=== PATIENT | female | born 1945 | race Two or more races ===

== ENCOUNTER 2019-02-03 08:22 | Outpatient (CLI) | payer OTHER | END 2019-02-03 08:38 | disposition home or self-care (01) | LOC: LAB 08:22 | DX: E55.9 Vitamin D deficiency, unspecified (principal) ==

== ENCOUNTER 2019-02-03 09:18 | Outpatient (CLI) | payer OTHER | END 2019-02-03 09:45 | disposition home or self-care (01) | LOC: SONOGRAMA 09:18 | DX: E04.1 Nontoxic single thyroid nodule (principal) ==

== ENCOUNTER 2019-02-14 10:11 | Outpatient (CLI) | payer OTHER | END 2019-02-14 10:16 | disposition home or self-care (01) | LOC: NUCLEAR 10:11 | DX: M81.0 Age-related osteoporosis without current pathological fracture (principal) ==

== ENCOUNTER 2019-04-10 08:18 | Outpatient (CLI) | payer OTHER | END 2019-04-10 08:22 | disposition home or self-care (01) | LOC: SONOGRAMA 08:18 | DX: E04.1 Nontoxic single thyroid nodule (principal) ==

== ENCOUNTER 2021-02-18 13:13 | Emergency (ER) | payer OTHER ==
[~2021-02-18] VITALS: Ht 154.9 cm; Wt 61.7 kg
[2021-02-18] MEDS ORDERED: METFORMIN HCL850 MG (13:33)
[2021-02-18] MEDS ORDERED: LOSARTAN POTAS100 MG PO (13:34)
[2021-02-18] MEDS ORDERED: ATORVASTATIN CA10 MG PO (13:34)
[2021-02-18] MEDS ORDERED: GLIMEPIRIDE2 MG (13:34)
== END 2021-02-18 18:33 | disposition home or self-care (01) ==
LOC: ER 13:13
DX: R10.32 Left lower quadrant pain (principal)

== ENCOUNTER 2021-02-26 19:24 | Emergency (ER) | payer OTHER ==
[~2021-02-26] VITALS: Ht 154.9 cm; Wt 59.0 kg
[~2021-02-26 19:24] MED LIST: ATORVASTATIN CA10 MG PO; GLIMEPIRIDE2 MG; LOSARTAN POTAS100 MG PO; METFORMIN HCL850 MG
== END 2021-02-26 23:30 | disposition home or self-care (01) ==
LOC: ER 19:24
DX: R42 Dizziness and giddiness (principal); R53.1 Weakness; R51.9 Headache, unspecified

== ENCOUNTER 2021-03-01 22:15 | Emergency (ER) | payer OTHER ==
[~2021-03-01] VITALS: Ht 154.9 cm; Wt 59.9 kg
== END 2021-03-02 01:11 | disposition home or self-care (01) ==
LOC: ER 22:15
DX: R42 Dizziness and giddiness (principal); R41.3 Other amnesia

== ENCOUNTER 2021-03-17 08:54 | Outpatient (CLI) | payer OTHER | END 2021-03-17 09:16 | disposition home or self-care (01) | LOC: MRI 08:54 | PROVIDERS: ATTEND Neuromusculoskeletal Medicine & OMM | DX: I72.8 Aneurysm of other specified arteries (principal); I65.09 Occlusion and stenosis of unspecified vertebral artery; R42 Dizziness and giddiness; H93.3X9 Disorders of unspecified acoustic nerve; I65.1 Occlusion and stenosis of basilar artery; Q28.2 Arteriovenous malformation of cerebral vessels | CPT/HCPCS: 70546; 70553; A9575; 70545 ==

== ENCOUNTER 2021-08-13 08:43 | Outpatient (CLI) | payer OTHER | END 2021-08-13 08:53 | disposition home or self-care (01) | LOC: RAD 08:43 | PROVIDERS: ATTEND Internal Medicine Pulmonary Disease | DX: R05.9 Cough, unspecified (principal) ==

== ENCOUNTER 2021-09-11 08:03 | Outpatient (CLI) | payer OTHER | END 2021-09-11 08:07 | disposition home or self-care (01) | LOC: RAD 08:03 | PROVIDERS: ATTEND Internal Medicine Rheumatology | DX: M15.0 Primary generalized (osteo)arthritis (principal); M05.79 Rheumatoid arthritis with rheumatoid factor of multiple sites without organ or systems involvement ==

== ENCOUNTER 2022-01-13 13:46 | Emergency (ER) | payer OTHER ==
[~2022-01-13] VITALS: Ht 160 cm; Wt 61.7 kg
== END 2022-01-13 19:45 | disposition home or self-care (01) ==
LOC: ER 13:46
DX: M77.50 Other enthesopathy of unspecified foot and ankle (principal); M77.31 Calcaneal spur, right foot; Z88.6 Allergy status to analgesic agent; Z91.013 Allergy to seafood; I10 Essential (primary) hypertension; E11.9 Type 2 diabetes mellitus without complications; Z79.84 Long term (current) use of oral hypoglycemic drugs

== ENCOUNTER 2022-05-15 08:19 | Outpatient (CLI) | payer OTHER | END 2022-05-15 14:57 | disposition home or self-care (01) | LOC: RAD 08:19 | PROVIDERS: ATTEND Orthopaedic Surgery | DX: Z76.89 Persons encountering health services in other specified circumstances (principal); M79.671 Pain in right foot ==

== ENCOUNTER 2022-05-18 08:28 | Outpatient (CLI) | payer OTHER ==
[~2022-05-18] VITALS: Ht 154.9 cm; Wt 60.8 kg
[2022-05-20] MEDS ORDERED: NORVASC2.5 M1 PO (14:29)
[2022-05-20] MEDS ORDERED: TRAZODONE HCL100 MG PO (14:29)
[2022-05-20] MEDS ORDERED: TOPROL XL25 M1 PO (14:29)
[2022-05-20] MEDS ORDERED: MELOXICAM5 MG PO (14:30)
== END 2022-05-18 23:00 | disposition home or self-care (01) ==
LOC: LAB 08:28
PROVIDERS: ATTEND Orthopaedic Surgery
DX: I10 Essential (primary) hypertension (principal); D64.9 Anemia, unspecified; E88.9 Metabolic disorder, unspecified; D68.8 Other specified coagulation defects; N39.0 Urinary tract infection, site not specified

== ENCOUNTER 2022-05-25 07:18 | Day surgery (SDC) | payer OTHER ==
[~2022-05-25 07:18] MED LIST changes: +MELOXICAM5 MG PO; +NORVASC2.5 M1 PO; +TOPROL XL25 M1 PO; +TRAZODONE HCL100 MG PO
== END 2022-05-25 17:15 | disposition home or self-care (01) ==
LOC: CIR.AMB 07:18
PROVIDERS: ATTEND Orthopaedic Surgery
DX: M76.61 Achilles tendinitis, right leg (principal); D16.31 Benign neoplasm of short bones of right lower limb; M66.361 Spontaneous rupture of flexor tendons, right lower leg; S93.01XA Subluxation of right ankle joint, initial encounter; S96.911A Strain of unspecified muscle and tendon at ankle and foot level, right foot, initial encounter; X58.XXXA Exposure to other specified factors, initial encounter; Y93.9 Activity, unspecified; Y92.9 Unspecified place or not applicable; I10 Essential (primary) hypertension; E11.9 Type 2 diabetes mellitus without complications; M19.90 Unspecified osteoarthritis, unspecified site; Z88.6 Allergy status to analgesic agent; Z91.013 Allergy to seafood; Z20.822 Contact with and (suspected) exposure to COVID-19
CPT/HCPCS: 28300; 27650; 27656; 28200; L8699

== ENCOUNTER 2022-10-19 10:09 | Outpatient (CLI) | payer OTHER | END 2022-10-19 10:18 | disposition home or self-care (01) | LOC: TOM 10:09 | DX: R07.9 Chest pain, unspecified (principal); R06.02 Shortness of breath ==

== ENCOUNTER 2022-11-27 10:35 | Outpatient (CLI) | payer OTHER | END 2022-11-27 10:39 | disposition home or self-care (01) | LOC: RAD 10:35 | DX: M25.571 Pain in right ankle and joints of right foot (principal); R05.1 Acute cough ==

== ENCOUNTER 2022-12-09 08:18 | Outpatient (CLI) | payer OTHER | END 2022-12-09 08:27 | disposition home or self-care (01) | LOC: MRI 08:18 | PROVIDERS: ATTEND Orthopaedic Surgery | DX: M79.604 Pain in right leg (principal) | CPT/HCPCS: 73723; Q9965; 73718 ==

== ENCOUNTER 2025-02-12 16:58 | Emergency (ER) | payer OTHER ==
[~2025-02-12] VITALS: Ht 152.4 cm; Wt 60.8 kg
[2025-02-12] MEDS ORDERED: FAMOTIDINE/PF 20 MG/2 ML VIAL IV PUSH STA (19:04)
[2025-02-12] MEDS ORDERED: LOPERAMIDE HCL 2 MG CAPSULE PO STA (19:06)
[2025-02-12] MEDS ORDERED: DEXTROSE 5 % AND 0.9 % NACL 1,000 ML IV STA (19:06)
[2025-02-12] MEDS ORDERED: 0.9 % SODIUM CHLORIDE 1,000 ML IV STA (19:11)
[2025-02-12 20:08] LABS: BASO % 0.3 % (0.1-1.2); EOS # 0.01 (0.04-0.54); EOS % 0.1 % (0.7-7.0); LYMPH # 1.21 (1.18-3.74); LYMPH % 12.0 % (19.3-53.1); MEAN PLATELET VOLUME 9.10 fl (9.4-12.4); MONO # 0.72 (0.24-0.82); MONO % 7.1 % (4.7-12.5); NEUT # 8.08 (1.56-6.13); NEUT % 80.2 % (34.0-71.1); RED CELL DISTRIBUTION WIDTH 13.4 % (11.6-14.4)
[2025-02-12 20:28] LABS: BUN CREA RATIO 14.0 (7.0-25.0); CREATININE SERUM 0.81 mg/dL (0.55-1.02); GFR 68.38; GLUCOSE FASTING 121.0 mg/dL (65-100); OSMOLALITY SERUM 278.0 MOSM/KG (275-295)
[2025-02-12 21:06] LABS: URINE APPEARANCE Clear; URINE BILIRRUBIN Negative (NEGATIVE); URINE BLOOD Trace; URINE COLOR Yellow; URINE KETONE Trace (NEGATIVE); URINE LEUKOCYTE Negative; URINE NITRATE Negative; URINE UROBILINOGEN 1.0 E.U./dl
[2025-02-12 21:10] LABS: URINE BACTERIA 70.7 uL (0.0-1933); URINE CAST 2.49 uL (0.0-1.40); URINE EPITHELIAL CELLS 19.9 uL (0.0-38.8); URINE RBC 16.7 uL (0.0-20.8); URINE WBC 24.4 uL (0.0-23.2)
[2025-02-12 21:16] LABS: URINE GLUCOSE 250 MG/DL (NEGATIVE); URINE PROTEIN 100 (NEGATIVE)
== END 2025-02-12 22:14 | disposition home or self-care (01) ==
LOC: ER 16:58
PROVIDERS: Emergency Medicine
DX: E86.0 Dehydration (principal); K52.89 Other specified noninfective gastroenteritis and colitis; R19.7 Diarrhea, unspecified; I10 Essential (primary) hypertension; E11.9 Type 2 diabetes mellitus without complications; Z88.6 Allergy status to analgesic agent; Z91.013 Allergy to seafood
CPT/HCPCS: 36415; 96365; 96366; 99282; J3490; J7030

== ENCOUNTER 2025-02-14 08:48 | Emergency (ER) | payer OTHER ==
[~2025-02-14] VITALS: Ht 154.9 cm; Wt 61.2 kg
[2025-02-14 09:01] VITALS: BP 152/73; O2SAT 100
[2025-02-14] MEDS ORDERED: CLONAZEPAM2 MG PO (09:06)
[2025-02-14] MEDS ORDERED: FAMOTIDINE40 MG PO (09:07)
[2025-02-14] MEDS ORDERED: ONDANSETRON HCL 2 MG/ML VIAL IV ONE (09:30)
[2025-02-14] MEDS ORDERED: FAMOtidine 10 MG/ML (4ML VIAL) IV ONE (09:30)
[2025-02-14] MEDS ORDERED: 0.9 % SODIUM CHLORIDE 500 ML IV ONE (09:45)
[2025-02-14 10:29] LABS: BASO % 0.5 % (0.1-1.2); EOS # 0.10 (0.04-0.54); EOS % 1.7 % (0.7-7.0); LYMPH # 1.05 (1.18-3.74); LYMPH % 17.9 % (19.3-53.1); MEAN PLATELET VOLUME 9.40 fl (9.4-12.4); MONO # 0.87 (0.24-0.82); NEUT # 3.82 (1.56-6.13); NEUT % 64.9 % (34.0-71.1); RED CELL DISTRIBUTION WIDTH 13.2 % (11.6-14.4)
[2025-02-14 10:37] LABS: MONO % 14.8 % (4.7-12.5)
[2025-02-14 10:54] LABS: ALT/SGPT 23.0 U/L (12-78); AST/SGOT 27.0 U/L (15-37); BILIRUBIN TOTAL 0.43 mg/dL (0.3-1.2); BUN CREA RATIO 19.0 (7.0-25.0); CREATININE SERUM 0.7 mg/dL (0.55-1.02); GFR 80.93; GLOBULINA 4.1 G/DL (2.4-3.5); GLUCOSE FASTING 114.0 mg/dL (65-100); OSMOLALITY SERUM 280.0 MOSM/KG (275-295)
[2025-02-14 10:59] LABS: URINE APPEARANCE Clear; URINE BILIRRUBIN Negative (NEGATIVE); URINE BLOOD Trace; URINE COLOR Dark Yellow; URINE GLUCOSE Negative (NEGATIVE); URINE KETONE Trace (NEGATIVE); URINE LEUKOCYTE Negative; URINE NITRATE Negative; URINE UROBILINOGEN 0.2 E.U./dl
[2025-02-14 11:00] LABS: COVID-19 AG NEGATIVE (NEGATIVE)
[2025-02-14 11:00] LABS: URINE BACTERIA 20.3 uL (0.0-1933); URINE CAST 2.34 uL (0.0-1.40); URINE EPITHELIAL CELLS 23.8 uL (0.0-38.8); URINE RBC 29.6 uL (0.0-20.8); URINE WBC 8.9 uL (0.0-23.2)
[2025-02-14 11:23] LABS: URINE MUCUS MODERATE; URINE PROTEIN 100 (NEGATIVE)
[2025-02-14] MEDS ORDERED: ZOFRAN8 MG PO (11:32)
[2025-02-14] MEDS ORDERED: PEPCID AC20 MG PO (11:32)
[2025-02-14] MEDS ORDERED: PROBIOTIC1 EAC2 PO (11:32)
[2025-02-14] MEDS ORDERED: METRONIDAZOLE500 MG PO (11:32)
[2025-02-14] MEDS ORDERED: CIPRO500 MG PO (11:32)
== END 2025-02-14 12:58 | disposition home or self-care (01) ==
LOC: ER 08:48
PROVIDERS: General Practice
DX: R19.7 Diarrhea, unspecified (principal); R11.2 Nausea with vomiting, unspecified; Z20.822 Contact with and (suspected) exposure to COVID-19; I10 Essential (primary) hypertension; E11.9 Type 2 diabetes mellitus without complications; Z88.6 Allergy status to analgesic agent; Z91.013 Allergy to seafood

== ENCOUNTER 2025-02-18 11:57 | Emergency (ER) | payer OTHER ==
[~2025-02-18] VITALS: Ht 160 cm; Wt 59.0 kg
[~2025-02-18 11:57] MED LIST changes: +CIPRO500 MG PO; +CLONAZEPAM2 MG PO; +FAMOTIDINE40 MG PO; +METRONIDAZOLE500 MG PO; +PEPCID AC20 MG PO; +PROBIOTIC1 EAC2 PO; +ZOFRAN8 MG PO
[2025-02-18] MEDS ORDERED: ESCITALOPRAM OX10 MG PO (12:58)
[2025-02-18] MEDS ORDERED: ACETAMINOPHEN 500 MG GEL..CAP PO ONE (14:00)
[2025-02-18] MEDS ORDERED: ORPHENADRINE CITRATE 30 MG/ML AMPUL IM ONE (14:00)
== END 2025-02-18 16:08 | disposition home or self-care (01) ==
LOC: ER 11:57
DX: M54.50 Low back pain, unspecified (principal); I10 Essential (primary) hypertension; E11.9 Type 2 diabetes mellitus without complications; Z88.6 Allergy status to analgesic agent; Z91.013 Allergy to seafood
CPT/HCPCS: 72100; 96372; 99283; J2360